=== PATIENT | female | born 1970 | race African-American/Black ===

== ENCOUNTER → 2017-03-19 | Outpatient (CLI) | payer OTHER ==
[2015-02-01 12:35] VITALS: BP 109/60
[~2017-03-19] MED LIST: MULT1TAB52 PO; OMEG500C PO
== END | disposition home or self-care (01) ==
LOC: MAMMO 13:26
PROVIDERS: ATTEND Obstetrics & Gynecology
DX: Z12.31 Encounter for screening mammogram for malignant neoplasm of breast (principal)
CPT/HCPCS: G0202; 77067